=== PATIENT | male | born 1955 | race Caucasian/White ===

== ENCOUNTER 2021-11-08 01:55 | Outpatient (CLI) | payer MEDICARE, SELFPAY ==
[2021-11-08 08:30] LABS: HCT 48.2 % (40.0-50.0); HGB 15.9 g/dL (13.5-17.5); MCH 29.2 pg (27.0-33.0); MCV 88.6 fL (80-95); MPV 10.1 fL (8.0-11.0); Platelet Count 205 10^3/uL (130-400); RBC 5.44 10^6/uL (4.36-5.78); RDW 12.1 % (11.8-14.1); WBC 4.83 10^3/uL (4.4-10.8)
[2021-11-08 09:18] LABS: ALT 24 U/L (16-63); AST 17 U/L (15-37); Albumin 4.1 g/dL (3.4-5.0); Alkaline Phosphatase 95 U/L (46-116); Anion Gap 3.8 mmol/L (3-11); BUN 12 mg/dL (7-18); Bilirubin, Total 0.9 mg/dL (0.2-1.0); CO2 32.2 mmol/L (21.0-32.0); CREATININE 1.1 mg/dL (0.70-1.30); Calcium 9.1 mg/dL (8.5-10.1); Calculated LDL 80 mg/dL (<100); Chloride 104 mmol/L (98-107); Cholesterol 174 mg/dL (<200); Glucose 86 mg/dL (74-106); HDL Cholesterol 87 mg/dL (40-60); Potassium 4.1 mmol/L (3.5-5.1); Sodium 140 mmol/L (136-145); TSH (W/Ref FT4) 1.83 uIU/mL (0.36-3.74); Total Protein 7.2 g/dL (6.4-8.2); Triglyceride 37 mg/dL (<150)
[2021-11-08 18:32] LABS: PSA, Screening 1.4 ng/mL (0.0-4.5)
[2021-11-09 10:34] LABS: HIV-1/2 Ag & Ab Screen Negative (Negative)
[2021-11-09 10:58] LABS: Hepatitis C Ab w Rflx HCV PCR Negative (Negative)
== END 2021-11-08 01:56 | disposition home or self-care (01) ==
LOC: LBO 01:55
PROVIDERS: PCP Family Medicine; Visit Provider Family Medicine
DX: I10 Essential (primary) hypertension (principal); Z11.59 Encounter for screening for other viral diseases; Z12.5 Encounter for screening for malignant neoplasm of prostate; Z13.6 Encounter for screening for cardiovascular disorders; N40.0 Benign prostatic hyperplasia without lower urinary tract symptoms; Z11.4 Encounter for screening for human immunodeficiency virus [HIV]
CPT/HCPCS: 36415; 80053; 80061; 84153; 85027; 86803; 87389; 84443

== ENCOUNTER 2022-02-26 22:50 | Outpatient (REF) | payer MEDICARE, SELFPAY ==
[2022-02-27 15:31] LABS: COVID-19 RT-PCR UVMMC Result Negative (Negative)
== END 2022-02-26 22:51 | disposition home or self-care (01) ==
LOC: LBN 22:50
PROVIDERS: PCP Family Medicine; Visit Provider Family Medicine
DX: Z20.822 Contact with and (suspected) exposure to COVID-19 (principal)
CPT/HCPCS: U0003; U0005

== ENCOUNTER 2023-03-20 04:50 | Outpatient (CLI) | payer OTHER, SELFPAY ==
[2023-03-20 15:52] LABS: C-Reactive Protein < 0.05 mg/dL (0.0-0.3)
[2023-03-28 09:24] LABS: Rheumatoid Factor <8.6 IU/mL (<12.0)
== END 2023-03-20 04:51 | disposition home or self-care (01) ==
PROVIDERS: PCP Nurse Practitioner Family; Visit Provider Nurse Practitioner Family
DX: M25.541 Pain in joints of right hand (principal); M25.542 Pain in joints of left hand; I10 Essential (primary) hypertension
CPT/HCPCS: 36415; 86140; 86431

== ENCOUNTER 2023-04-07 07:03 | Day surgery (SDC) | payer OTHER, SELFPAY ==
--- NOTE | 2023-04-06 18:29 | W.ANESPRE ---
General Info Date of Service Date Performed: 04/07/23 Height: 5 ft 8 in Weight: 66.043 kg Body Mass Index (BMI): 22.1 Surgical Procedure: Operation Date: 04/07/23 08:20 Proposed Procedure Side Surgeon p Colonoscopy Kevin Aragon MD Meds Allergies and Home Medications Allergies Allergy/AdvReac Type Severity Reaction Status Date / Time No Known Allergies Allergy Unverified 04/07/23 07:29 Home Medication Medication Instructions Recorded fluocinolone acetonide oil 0.01 % 5 drp otic (ear) BID 09/10/21 ear drops (DermOtic Oil) metronidazole 1 % topical gel 1 applic topical DAILY 09/10/21 (Metrogel) Current Visit Medications: Current Medications Generic Name Dose Route Start Last Admin Trade Name Freq PRN Reason Stop Dose Admin Ringer's Solution 1,000 mls @ 80 mls/hr 04/07/23 06:00 IV 05/04/23 23:59 INFUSION YANICK IV Miscellaneous Supplies 1 each 04/07/23 06:00 Iv Access IV 05/04/23 23:59 DIRECTED YANICK Sodium Chloride 0 ml 04/07/23 06:00 Normal Saline Flush 10 Ml Syr IV 05/04/23 23:59 PRN PRN Sodium Chloride 0 ml 04/07/23 06:00 Normal Saline 10 Ml Vial IJ 05/04/23 23:59 DIRECTED PRN Sterile Water 0 ml 04/07/23 06:00 Water,Injection,Sterile 10 Ml Vial IJ 05/04/23 23:59 DIRECTED PRN PFSH Active Problems Active Problems: Problem Status Onset Code Finger joint swelling M25.449 Inguinal hernia of right side without obstruction or gangrene K40.90 Family history of colon cancer Z80.0 Essential hypertension I10 Internal hemorrhoid K64.8 Eczema L30.9 Hypertrophy of prostate without urinary obstruction N40.0 Decreased hearing of both ears H91.93 Rosacea L71.9 Ulnar neuropathy G56.20 Medical History Medical History History of smoking Surgical History Surgical History (Updated 04/07/23 @ 07:30 by Liana Alfaro) H/O surgical procedure IRC Hemorrhoids H/O vasectomy Hx of colonoscopy Hx of LASIK Tobacco Smoking/Tobacco Use Status: Former Tobacco Use Second hand exposure: Yes Alcohol Alcohol Intake: current Alcohol intake frequency: a few times a month Alcohol type: beer and hard liquor Substance Use Substance use: Occasionally Substance use type: marijuana Vital Signs and Lab Results Vital Signs Most Recent Vital Signs in EMR: Temp Pulse Resp BP Pulse Ox 36.4 C L 57 L 16 136/91 H 99 04/07/23 07:25 04/07/23 07:25 04/07/23 07:25 04/07/23 07:25 04/07/23 07:25 Lab Results Blood Type / Crossmatch: No Data to Display Complete Blood Count: No Data to Display Complete Metabolic Panel: C-Reactive Protein < 0.05 mg/dL (0.0-0.3) 03/20/23 14:44 Liver Function Panel: No Data to Display Coagulation Panel: No Data to Display Cardiac Panel: No Data to Display Arterial Blood Gas: No Data to Display Venous Blood Gas: No Data to Display Pancreas Panel: No Data to Display Thyroid Panel: No Data to Display Infectious Disease: No Data to Display Blood Cultures: No Data to Display Toxicology Panel: No Data to Display Anesthesia Assessment and Plan Anesthesia History Personal History: No History of Anesthesia Complications Family History: No Family History of Anesthesia Complications Exercise Tolerance Exercise Tolerance: Metabolic Equivalents>4 Cardiac & Pulmonary Exam Cardiac Exam: Normal S1/S2 Heart Sounds Pulmonary Exam: Clear Bilateral Breath Sounds Implantable Cardiac Device Does patient have a Pacemaker or an ICD?: No Airway Exam Known Difficult Airway: No Mallampati Class: 3 Mouth Opening: Normal (> 3cm) Thyromental Distance: Greater than 3 cm Neck Range of Motion: Full ROM Neck Circumference: Normal Teeth Condition: Normal Dentition ASA Classification ASA Score: ASA 2 Emergency Case?: No NPO Status NPO Status: NPO Clears >2 hours, Solids >8 hours Anesthesia Plan Resuscitation Status: Full Code Anesthesia Technique: General Anesthesia Airway Planned: Natural Airway Monitors Used: Standard Monitors Preoperative Comments:: 67 yo male for colo. Sig PMHx: HTN (no meds), ulnar neuropathy, former smoker. occ EtOH.
--- NOTE | 2023-04-06 20:14 | W.PM.DSUDISC ---
Date of service: 04/07/23 Time of Service: 08:46 Discharge Plan Disposition Patient Disposition: Home Condition: Good Discharge Details Reason For Visit: Screening colonoscopy Attending Provider: Kevin Aragon Primary Care Provider: Al Blanton Home Meds and New Rx's Prescriptions: Continued metronidazole [Metrogel] 1 % gel 1 applic topical DAILY fluocinolone acetonide oil [DermOtic Oil] 0.01 % drops 5 drp otic (ear) BID Discontinued bisacodyl [Dulcolax (bisacodyl)] 5 mg tablet,delayed release (DR/EC) 5 mg PO ONCE Qty: 4 0RF Rx Instructions: Take per colonoscopy instructions provided by ordering providers office polyethylene glycol 3350 17 gram/dose powder 17 g PO ONCE Qty: 238 0RF Rx Instructions: Take per colonoscopy instructions provided by ordering providers office Discharge Instructions Additional Instructions: Maxwell, We were able to complete your colonoscopy today without any problems. The quality of your prep was excellent. I did not see any signs of tumors or polyps. Based on your family history, I recommend another colonoscopy in 5 years. 1. If tolerated, consume a soft, low fiber diet for 1-2 days. 2. Do not drive, drink alcohol, operate machinery, make critical decisions, or do activities that require coordination or balance for 24 hours. 3. Because air was put into your colon during the procedure, expelling air from your rectum (passing gas or farting) is normal. 4. You may not have a bowel movement for 1-3 days because of the colonoscopy prep. This is normal. 5. Go directly to the emergency room if you notice any of the following: Develop chills (warm to touch), or if you have a thermometer and your temperature is above 101 Difficulty breathing or difficultly swallowing Persistent vomiting Severe abdominal pain, other than gas cramps Severe chest pain Black, tarry stools Any bleeding ? exceeding one tablespoon 6. Call your physician if the site where your intravenous was started becomes red, swollen, painful, and warm to touch. 7. Your physician has reviewed your pre-procedure medications. Please continue to take those medications as previously ordered. You will be given specific information/education regarding any changes to your medications before leaving. Activity:: Activity as Tolerated Diet:: As Tolerated Discharge Orders Discharge Orders: Discharge Order (Routine); Ordered 04/06/23 Ordered By: Kevin Aragon DS: Diagnosis Discharge Diagnosis (1) Family history of colon cancer: Status: Acute Asessment and Plan: Negative screening colonoscopy; based on family history for repeat in 5 years
--- NOTE | 2023-04-06 20:18 | W.COLOREPORT ---
Date of service: 04/07/23 Time of Service: 08:47 Colonoscopy Report Date of procedure: 04/07/23 Pre-op diagnosis general: Screening colonoscopy Post-op diagnosis procedure note: same Procedure: Colonoscopy Surgeon: Kevin Aragon Anesthesia Type: General:No Airway Estimated blood loss (mL): 0 Pathology: none sent Complications: None Disposition: same day Indications: Maxwell is a 67 year old man with a first degree relative who had colon cancer who is here for a screening colonoscopy. Prep: Miralax/Dulcolax Procedure Start Time: 08:22 Procedure End Time: 08:37 Retraction Time: 9 Findings: Negative screening colonoscopy Procedure Description: After the induction of monitored anesthetic care, and with the patient in left lateral decubitus position, I began by performing an external anorectal exam.? Perineum and skin were normal, as was the anal verge.? There was no evidence of external hemorrhoids.? Next, I performed a digital rectal exam.? I did not appreciate any abnormal findings.? Next, I advanced a colonoscope into the rectal vault.? I performed retroflexion.? There is grade 1 internal hemorrhoids.? Using insufflation, I then advanced the colonoscope beyond the rectal folds and into the sigmoid colon before advancing towards the cecum.? The quality of the prep was excellent.? The scope was noted to be in the cecum by identification of the ileocecal valve and appendiceal orifice.? I then began withdrawing the colonoscope using repeated irrigation as necessary for full evaluation of the colonic mucosa. ?Once the scope was withdrawn to the level of the rectum, great care was taken to examine portions of the rectal folds.? I did not see any signs of tumors or polyps. Finally, the scope was withdrawn and the patient was brought to the same-day surgery recovery unit as the anesthetic wore off. ?The findings and instructions were shared with the patient prior to discharge.
[2023-04-07 07:25] VITALS: BP 136/91; PULSE 57; RESP 16; TEMP 36.4; O2SAT 99
[2023-04-07 07:39] VITALS: BMI 22.1
[2023-04-07] MEDS: Lactated Ringers 1,000 ML 80 ML IV (07:50)
[2023-04-07 08:43] VITALS: BP 126/92; PULSE 63; RESP 16; TEMP 36.6; O2SAT 98
--- NOTE | 2023-04-07 08:52 | W.ANESPOSTOP ---
Postoperative Evaluation Date, Time and Location Date Performed: 04/07/23 Time Performed: 08:52 Patient Location: Day Surgery Unit Vital Signs Most Recent Imported Vital Signs: Most Recent Vital Signs Temp Pulse Resp BP Pulse Ox 36.6 C 63 16 126/92 H 98 04/07/23 08:43 04/07/23 08:43 04/07/23 08:43 04/07/23 08:43 04/07/23 08:43 Pain Score Most Recent Pain Score: Most Recent Pain Score Pain Level 0 04/07/23 07:25 Assessment Mental Status: Awake (Alert & Oriented to Patient Baseline) Airway and Respiratory Function: Patent airway with normal (patient baseline) respiratory exam Cardiovascular Function: Hemodynamically Stable Hydration Status: Adequately Hydrated Nausea & Vomiting: No Nausea or Vomiting Pain: Pt. Denies Any Pain Peripheral Nerve Block: Patient did not receive a nerve block
[2023-04-07 09:08] VITALS: BP 155/93; PULSE 61; RESP 16; TEMP 36.4; O2SAT 99
== END 2023-04-07 09:34 | disposition home or self-care (01) ==
PROVIDERS: PCP Nurse Practitioner Family; Visit Provider Surgery
PROC: 0DJD8ZZ Inspection of Lower Intestinal Tract, Via Natural or Artificial Opening Endoscopic (ICD-10-PCS; CPT 45378; principal; 2023-04-07 08:15)
DX: Z12.11 Encounter for screening for malignant neoplasm of colon; Z80.0 Family history of malignant neoplasm of digestive organs; K64.0 First degree hemorrhoids
CPT/HCPCS: 45378; J2001

== ENCOUNTER → 2024-03-23 01:54 | Outpatient (CLI) | payer MEDICARE, SELFPAY ==
--- NOTE | 2024-03-23 07:00 | DI.US_ITS ---
Exam(s) US AAA SCREENING EXAM: US AAA SCREENING CLINICAL HISTORY: hx tobacco use, hx smoking, Z87.891, screening AAA COMPARISON: No exams were available for comparison FINDINGS: There is no evidence of abdominal aortic aneurysm. Maximum diameter of the abdominal aorta is 2.7 cm , proximally and the aorta tapers distally in normal fashion. Both common iliac arteries exhibit min imally prominent size, with diameters of 1.3 cm IMPRESSION: No ultrasound evidence of abdominal aortic aneurysm. 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 DATA REPOSITORY:
== END ==
PROVIDERS: PCP Family Medicine; Visit Provider Family Medicine
DX: Z13.6 Encounter for screening for cardiovascular disorders (principal); Z87.891 Personal history of nicotine dependence
CPT/HCPCS: 76706

== ENCOUNTER 2024-09-28 09:30 | Outpatient (CLI) | payer MEDICARE, SELFPAY ==
[2024-09-28 12:59] LABS: ALT 25 U/L (16-63); AST 26 U/L (15-37); Albumin 3.9 g/dL (3.4-5.0); Alkaline Phosphatase 82 U/L (46-116); Anion Gap 8.4 mmol/L (3-11); BUN 25 mg/dL (7-18); Bilirubin, Total 0.82 mg/dL (0.2-1.0); CO2 28.6 mmol/L (21.0-32.0); CREATININE 1.1 mg/dL (0.70-1.30); Calcium 9.4 mg/dL (8.5-10.1); Calculated LDL 71 mg/dL (<100); Chloride 105 mmol/L (98-107); Cholesterol 158 mg/dL (<200); Estimated GFR 73.58 (mL/min/1.73m2); Glucose 68 mg/dL (74-106); HDL Cholesterol 79 mg/dL (40-60); Potassium 4.7 mmol/L (3.5-5.1); Sodium 142 mmol/L (136-145); Total Protein 7.2 g/dL (6.4-8.2); Triglyceride 42 mg/dL (<150)
[2024-09-28 18:11] LABS: PSA, Screening 1.1 ng/mL (<=4.5)
== END 2024-09-28 09:31 | disposition home or self-care (01) ==
LOC: LOS 09:30
PROVIDERS: PCP Family Medicine; Referring Provider Family Medicine; Visit Provider Family Medicine
DX: Z00.00 Encounter for general adult medical examination without abnormal findings (principal); I10 Essential (primary) hypertension; Z13.6 Encounter for screening for cardiovascular disorders; Z12.5 Encounter for screening for malignant neoplasm of prostate
CPT/HCPCS: 36415; 80053; 80061; 84153

== ENCOUNTER 2025-03-21 10:28 | Outpatient (CLI) | payer MEDICARE, SELFPAY ==
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
== END 2025-03-21 10:48 ==
LOC: DI 10:29
PROVIDERS: PCP Family Medicine; Visit Provider Family Medicine
DX: S69.91XA Unspecified injury of right wrist, hand and finger(s), initial encounter (principal); M19.041 Primary osteoarthritis, right hand; X58.XXXA Exposure to other specified factors, initial encounter
CPT/HCPCS: 73130

== ENCOUNTER 2025-05-10 03:06 | Outpatient (CLI) | payer MEDICARE, SELFPAY ==
[2025-05-10 12:30] LABS: Anion Gap 5.7 mmol/L (3-11); BUN 21 mg/dL (7-18); CO2 31.3 mmol/L (21.0-32.0); Calcium 9.3 mg/dL (8.5-10.1); Chloride 103 mmol/L (98-107); Estimated GFR 81.98 (mL/min/1.73m2); Glucose 86 mg/dL (74-106); Potassium 3.7 mmol/L (3.5-5.1); Sodium 140 mmol/L (136-145)
[2025-05-10 18:24] LABS: PSA, Screening 1.3 ng/mL (<=4.5)
== END 2025-05-10 03:07 | disposition home or self-care (01) ==
PROVIDERS: PCP Family Medicine; Visit Provider Family Medicine
DX: Z12.5 Encounter for screening for malignant neoplasm of prostate (principal); I10 Essential (primary) hypertension
CPT/HCPCS: 36415; 80048; 84153